=== PATIENT | female | born 1965 | race Caucasian/White ===

== ENCOUNTER 2018-05-31 17:29 | Emergency (ER) | payer BC ==
[~2018-05-31] VITALS: Ht 170.2 cm; Wt 66.7 kg
[2018-05-31 17:35] VITALS: BP 124/82
[2018-05-31] MEDS ORDERED: Tetanus/Diptheria/Pertussis Vaccine 0.5ml Syr IM ONE (17:45)
[2018-05-31] MEDS ORDERED: Augmentin 875mg Tab ORAL ONE (18:15)
[2018-05-31] MEDS ORDERED: Lidocaine 1% Plain 30 ml INJ ONE (18:15)
[2018-05-31] MEDS ORDERED: Norco 5mg/325mg tab ORAL ONE (18:30)
--- NOTE | 2018-05-31 19:44 | Emergency Room Report ---
History of Present Illness General Chief Complaint: Animal Bite Source: Patient Present Illness HPI 53-year-old female presents to the emergency department complaining of 4 out of 10 in severity pain with sustained laceration to the right palm to occurred from a dog bite. Patient reports she was attempting to break up 2 dogs and in the process she was bitten on the hand. Patient states that bleeding has subsided at this time she denies taking blood thinning medications. Patient is not sure when her last tetanus vaccination was but she believes that she is in need of one. Patient states that the vaccinations of the animal is up today and that both dogs involved were pets. Patient denies bone pain or suspicion of possible fracture she reports small to medium-sized dog that bit her. Denies numbness /tingling or loss of sensation or gross motor movements of the affected extremity. Allergies: Coded Allergies: No Known Allergies (Unverified , 05/31/18) Patient History Past Medical History: see triage record Past Surgical History: none Pertinent Family History: none Last Menstrual Period: 05/10 Now: No Reviewed Nursing Documentation: PMH: Agreed; PSxH: Agreed Nursing Documentation-PMH Past Medical History: No Stated History Review of Systems All Other Systems: negative except mentioned in HPI Physical Exam Vital Signs Date Time Temp Pulse Resp B/P (MAP) Pulse Ox O2 Delivery O2 Flow Rate FiO2 05/31/18 17:34 98.8 65 20 121/84 97 Room Air Sp02 EP Interpretation: reviewed, normal General Appearance: no apparent distress, alert, GCS 15, non-toxic Head: normocephalic, atraumatic Eyes: bilateral eye normal inspection, bilateral eye PERRL ENT: hearing grossly normal, normal voice Neck: full range of motion Respiratory: chest non-tender, lungs clear, normal breath sounds, speaking full sentences Cardiovascular #1: regular rate, rhythm Musculoskeletal: back normal, gait/station normal, normal range of motion, non- tender - no bony ttp. Neurologic: alert, oriented x3, responsive, motor strength/tone normal, sensory intact, speech normal, grossly normal Psychiatric: judgement/insight normal Skin: normal color, no rash, warm/dry, well hydrated, laceration - Right Palm laceration approx 6 cm in length Lymphatic: no adenopathy Procedures Laceration/Wound Repair Laceration/Wound Repair : Consent: Verbal Wound Location: upper extremity - right palm Wound's Depth, Shape: linear Wound Length (cm): 6 Wound Explored: contaminated - animal bite, contaminated Betadine Prep?: Yes Anesthesia: 1% Lidocaine Volume Anesthetic (ccs): 3 Wound Debrided: minimal Wound Repaired With: sutures Suture Size/Type: 4:0 Number of Sutures: 9 Layer Closure?: No Sterile Dressing Applied?: Yes Splint Applied?: Yes - Thumb Spika Sling Applied?: No Patient Tolerated: Well Complications: None Medical Decision Making PA Attestation Dr. Sal is my supervising Physician whom patient management has been discussed with. Diagnostic Impression: Primary Impression: Dog bite Qualified Codes: W54.0XXA - Bitten by dog, initial encounter Additional Impression: Laceration ER Course 53-year-old female presents to the emergency department complaining of 4 out of 10 in severity pain with sustained laceration to the right palm to occurred from a dog bite. Patient reports she was attempting to break up 2 dogs and in the process she was bitten on the hand. Patient states that bleeding has subsided at this time she denies taking blood thinning medications. Patient is not sure when her last tetanus vaccination was but she believes that she is in need of one. Patient states that the vaccinations of the animal is up today and that both dogs involved were pets. Patient denies bone pain or suspicion of possible fracture she reports small to medium-sized dog that bit her. Denies numbness /tingling or loss of sensation or gross motor movements of the affected extremity. Ddx considered but are not limited to laceration, tendon injury, cellulitis, amputation Vital signs: are WNL, pt. is afebrile H&PE are most consistent with: Right Palm laceration approx 6 cm in length- no obvious tendon involvement. ORDERS: none required at this time, the diagnosis is clinical ED INTERVENTIONS: -Tetanus vaccine was administered as pt. vaccination status was unknown. - The wound was copiously irrigated with normal saline, and explored for foreign body for which no FB was found. - pt. is anesthetized with 1%lidocaine - The wound was approximated and closed using 9 interrupted 4.0 Ethilon sutures. -Bacitracin and sterile dressing is applied. Thumb Spika Splint applied to the right hand by ophthalmology surgical technician. Pt. remains neurovascularly intact. Discussed with patient: That we make every effort to approximate the laceration as best as we can so that scarring will be as cosmetically pleasing as possible with our limited cosmetic skill set in the Emergency dept. Regardless of our best efforts there will be scarring after laceration repair. The extent of scarring is unknown at this time. I highly encouraged this patient to have follow-up with a hand specialist and this can be referred to her by her PCP as she states she has a PCP appointment already for this Wednesday. DISCHARGE: At this time pt. is stable for d/c to home. Will provide printed patient care instructions, and any necessary prescriptions. Care plan and follow up instructions have been discussed with the patient prior to discharge. Last Vital Signs Date Time Temp Pulse Resp B/P (MAP) Pulse Ox O2 Delivery O2 Flow Rate FiO2 05/31/18 17:35 98.6 64 18 124/82 98 Room Air Disposition: HOME, SELF-CARE Condition: Stable Scripts Acetaminophen* (TYLENOL EXTRA STRENGTH*) 500 Mg Tablet 500 MG ORAL Q6H, #20 TAB 0 Refills Prov: Prabha Crews 05/31/18 Mupirocin* (MUPIROCIN*) 22 Gm Oint...g. 1 APPLIC TOPIC BID, #22 GM Prov: Prabha Crews 05/31/18 Amoxicillin/Potassium Clav 875-125* (AUGMENTIN 875-125 TABLET*) 1 Each Tablet 1 TAB ORAL TWICE A DAY, #14 TAB Prov: Prabha Crews 05/31/18 Patient Instructions: Animal Bite, Laceration Care, Adult Additional Instructions: Take medications as directed. Follow up with a Primary Care Provider in 3-5 days, even if your symptoms have resolved. --Please review list of primary care clinics, if you do not already have a primary care provider Return sooner to ED if new symptoms occur, or current symptoms become worse. - Please note that this Emergency Department Report was dictated using [employer] patcher technology software, occasionally this can lead to erroneous entry secondary to interpretation by the dictation equipment. Prabha Crews May 31, 2018 19:44
[2018-05-31] MEDS ORDERED: Bacitracin Oint UD TOPIC ONE ×2 (19:47→20:00)
[2018-05-31] MEDS ORDERED: MUPIROCIN22 GM TOPIC (19:48)
[2018-05-31] MEDS ORDERED: AUGMENTIN 875-1 EAC1 ORAL (19:48)
[2018-05-31] MEDS ORDERED: TYLENOL EXTRA500 MG ORAL (19:49)
[2018-05-31 19:58] VITALS: BP 126/66
== END 2018-05-31 19:57 | disposition home or self-care (01) ==
LOC: EMR 18:10
DX: S61.411A Laceration without foreign body of right hand, initial encounter (principal); W54.0XXA Bitten by dog, initial encounter; Y92.89 Other specified places as the place of occurrence of the external cause; Z23 Encounter for immunization
CPT/HCPCS: 12002; 29125; 90471; 90715; 99283; J2001